=== PATIENT | female | born 1975 | race Two or more races ===

== ENCOUNTER 2018-06-08 06:42 | Day surgery (SDC) | payer OTHER ==
[~2018-06-08 06:42] MED LIST: CLONAZEPAM0.25 MG PO
== END 2018-06-08 15:50 | disposition home or self-care, planned readmission (81) ==
LOC: CIR.AMB 06:42 → AMB-ENDOS 09:30 → CIR.AMB 10:30
DX: K64.8 Other hemorrhoids (principal); K64.4 Residual hemorrhoidal skin tags